=== PATIENT | male | born 2000 | race Two or more races ===

== ENCOUNTER 2024-12-13 09:50 | Inpatient (IN) | payer OTHER ==
[~2024-12-13] VITALS: Ht 167.6 cm; Wt 77.3 kg
--- NOTE | 2024-12-13 10:06 | Physician Documentation ---
History of Present Illness ~ Chief Complaint: Ankle pain Stated Complaint: "QUIGLEY SPLINTS" Time Seen by MD: 11:00 HPI This 24-year-old male presents to the ED with a complaint of leg cramps for the last 2-3 hours with increasing severity. 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 foot held stiffly in dorsiflexion, tenderness to anterior lower leg muscles. posterior lower leg soft non tender. Procedures Additional Procedures Procedure Note Compartment pressure left leg -cleaned and prep with iodine -injected with lidocaine 7ml inserted 20g spinal needle into anterior compartment pressure 70mmhg, delta pressure 10 lateral compartment 28 deep compartment 20 superficial 22 Progress Progress Note 2 pm recheck he is still hurting. 4pm patient still uncomfortable, tachycardic, i am concerned for compartment syndrome. Attempted x 1 using a CVP monitor which was inconsistent and not working. Will retry using arterial line catheter. We do not have ortho eyewear consultant currently 540 pm compartment pressures elevated, Anabel lujan for emergent ortho 620pm orthopedics is now available, called Dr. Casiano who will come see the patient. Results/Orders Results/Orders Orders - ZACHARY COLLINS MD Tib/Fib (12/13/24 10:00) Cbc/Diff (12/13/24 15:57) Ringers Solution, Lacted (Lactated Ringe (12/13/24 18:25) Completed Orders - ZACHARY COLLINS MD Tib/Fib (12/13/24 10:00) CK (12/13/24 10:00) Urinalysis (12/13/24 10:00) BMP (12/13/24 10:00) Hydrocodone/Apap 10/325 ([place] 10/325mg (12/13/24 10:02) Cbc/Diff (12/13/24 11:21) Ringers Solution, Lacted (Lactated Ringe (12/13/24 11:50) Ketorolac Trometh 15mg/Ml Vial (Toradol (12/13/24 11:50) Morphine 4mg/Ml Inj. (Morphine Inj.) (12/13/24 11:50) Magnesium Sulf-Water 2g/50ml (Magnesium (12/13/24 13:15) Tizanidine Tablet (Zanaflex Tablet) (12/13/24 13:15) Lorazepam Inj (Ativan Inj) (12/13/24 13:15) Diazepam Tablet (Valium Tablet) (12/13/24 14:25) Lidocaine 1% W/Epi 1:100,000 (Xylocaine (12/13/24 15:25) CK (12/13/24 15:57) Medications Received in ER Medications (Trade) Dose Ordered Sig/Alysha Route PRN Reason Start Time Stop Time Status Last Admin Dose Admin Lactated Ringer's 1,000 ml @ 1,000 mls/hr ONCE ONCE IV 12/13/24 11:50 12/13/24 12:49 DC 12/13/24 11:58 1,000 MLS/HR (Toradol injection) 15 mg ONCE ONCE IV 12/13/24 11:50 12/13/24 11:53 DC 12/13/24 12:01 15 MG (morphine inj.) 4 mg ONCE ONCE IV 12/13/24 11:50 12/13/24 11:53 DC 12/13/24 12:02 4 MG Magnesium Sulfate 50 ml @ 25 mls/hr ONCE ONCE IV 12/13/24 13:15 12/13/24 15:14 DC 12/13/24 13:29 25 MLS/HR (Zanaflex tablet) 4 mg ONCE ONCE PO 12/13/24 13:15 12/13/24 13:16 DC 12/13/24 13:27 4 MG (Ativan inj) 0.5 mg ONCE ONCE IV 12/13/24 13:15 12/13/24 13:16 DC 12/13/24 13:27 0.5 MG (Valium tablet) 5 mg ONCE ONCE PO 12/13/24 14:25 12/13/24 14:29 DC 12/13/24 14:59 5 MG (Xylocaine 1%-EPI 1:100,000) 20 ml ONCE ONCE SQ 12/13/24 15:25 12/13/24 15:26 DC 12/13/24 15:36 20 ML (Dilaudid inj.) 1 mg ONCE ONCE IV 12/13/24 16:05 12/13/24 16:06 DC 12/13/24 16:36 1 MG Vital Signs 12/13/24 12/13/24 12/13/24 12/13/24 09:57 10:21 11:02 11:50 Temp 98.8 Pulse 149 Resp 24 20 22 18 B/P (MAP) 162/105 Pulse Ox 97 O2 Flow Rate 0 12/13/24 12/13/24 12/13/24 12/13/24 12:01 12:02 13:20 14:57 Temp 98.8 Pulse 115 112 Resp 21 21 12 14 B/P (MAP) 159/113 (128) 144/102 (116) Pulse Ox 97 98 O2 Flow Rate 0 0 12/13/24 12/13/24 12/13/24 12/13/24 15:51 15:58 16:41 16:50 Temp 98.8 98.8 98.8 98.8 Pulse 110 91 106 98 Resp 12 10 12 10 B/P (MAP) 125/73 (90) 119/67 (84) 129/86 (100) 124/77 (93) Pulse Ox 96 98 99 99 O2 Flow Rate 0 0 0 0 12/13/24 12/13/24 12/13/24 17:00 17:10 17:53 Temp 98.8 98.8 Pulse 107 108 Resp 11 16 18 B/P (MAP) 142/76 (98) 135/90 (105) Pulse Ox 99 99 O2 Flow Rate 0 0 Laboratory Tests Test 12/13/24 10:46 12/13/24 13:45 12/13/24 16:22 White Blood Count 16.9 H 10.5 Red Blood Count 5.65 5.18 Hemoglobin 16.3 15.2 Hematocrit 48.2 44.4 Mean Corpuscular Volume 85.4 85.7 Mean Corpuscular Hemoglobin 28.8 29.4 Mean Corpuscular Hemoglobin Concent 33.7 34.3 Red Cell Distribution Width 12.8 12.7 Platelet Count 270 247 Mean Platelet Volume 10.7 H 10.7 H Neutrophils (%) (Auto) 85.8 H 85.9 H Lymphocytes (%) (Auto) 8.5 L 8.9 L Monocytes (%) (Auto) 5.5 5.0 Eosinophils (%) (Auto) 0 0 Basophils (%) (Auto) 0.2 0.2 Neutrophils # (Auto) 14.5 H 9.0 H Lymphocytes # (Auto) 1.4 0.9 L Monocytes # (Auto) 0.9 0.5 Eosinophils # (Auto) 0.0 0.0 Basophils # (Auto) 0.0 0.0 CBC Comment Platelet Estimate Normal Large Platelets Few Red Blood Cell Morphology Normal Basophilic Stippling Sodium Level 137 Potassium Level 3.9 Chloride Level 99 Carbon Dioxide Level 22.4 L Anion Gap 16 Blood Urea Nitrogen 12 Creatinine 1.66 H Estimated GFR/1.73 m2 50 BUN/Creatinine Ratio 7.2 L Glucose Level 124 H Calcium Level 9.6 Total Creatine Kinase 440 H 4149 H Albumin 4.9 Chemistry Comments Urine Specimen Description Non-specified Urine Color Straw Urine Clarity Clear Urine pH 6.0 Urine Specific Alanson <=1.005 Urine Protein Negative Urine Glucose (UA) Negative Urine Ketones 40 H Urine Occult Blood Negative Urine Nitrite Negative Urine Bilirubin Negative Urine Urobilinogen 0.2 Urine Leukocyte Esterase Negative Volume Urine Centrifuged 10 ml Urine Comment Medical Decision Making Additional Comment compartment symdrome, heat cramps. Departure Disposition: 30 STILL A PATIENT Impression: Primary Impression: Compartment syndrome Qualified Codes: M79.A22 - Nontraumatic compartment syndrome of left lower extremity Additional Impression Text patient with leg pain after hiking. initially felt likely heat cramps, now concern for compartment syndrome. Signed out to night physician Dr. Schmitt pending ortho eval. Referrals: NO PRIMARY CARE PROVIDER (PCP) Signature Scribe Signature: na Attestation: TARA Gottlieb NP Dec 13, 2024 10:06 ZACHARY COLLINS MD Dec 13, 2024 13:17
[2024-12-13] MEDS: HYDROcodone/acetaminophen 10/325mg tab PO STA (10:21)
--- NOTE | 2024-12-13 10:37 | RADIOLOGY REPORT ---
CLINICAL INDICATION: BILATERAL TIB-FIB PAIN TECHNIQUE: DI TIB/FIB 2 VWS, DI TIB/FIB 2 VWS Comparison: None FINDINGS/IMPRESSION: : There is no evidence of acute fracture or dislocation. Soft tissues are unremarkable.
[2024-12-13 11:22] LABS: CREATININE 1.66 MG/DL (0.60-1.10); TOTAL CARBON DIOXIDE 22.4 MMOL/L (24-32); eCRCL 61 ML/MIN; eGFR 50 ML/MIN
[2024-12-13 11:35] LABS: MEAN PLATELET VOLUME 10.7 FL (7.4-10.4); RED CELL DISTRIBUTION WIDTH 12.8 % (11.5-14.5)
[2024-12-13 11:52] LABS: PLATELET ESTIMATE NORMAL
[2024-12-13 11:54] LABS: LARGE PLATELETS FEW
[2024-12-13] MEDS: ringers solution, lacted 1,000 ML IV ONE ×2 (11:58→18:39)
[2024-12-13] MEDS: ketorolac trometh 15mg/ml vial 15 MG/ML ML IV ONE (12:01)
[2024-12-13] MEDS: morphine 4 MG/ML inj SYRINge IV ONE (12:02)
[2024-12-13] MEDS: magnesium sulf-water 2g/50mL 50 ML IV ONE (13:29)
[2024-12-13 14:00] LABS: LEUKOCYTE ESTERASE ,URINE NEGATIVE (Neg); NITRITES, URINE NEGATIVE (Neg); OCCULT BLOOD,URINE NEGATIVE (Neg); UA COLLECTION TYPE NON-SPECIFIED
[2024-12-13] MEDS: LIDOcaine 1% W/epiNEPHrine 1:100,000 20ml vial SQ ONE (15:36)
[2024-12-13 17:10] LABS: MEAN PLATELET VOLUME 10.7 FL (7.4-10.4); RED CELL DISTRIBUTION WIDTH 12.7 % (11.5-14.5)
[2024-12-13] MEDS ORDERED: mag hydrox/Alum hydrox/simeth 30ml oral suspension PO PRN (21:15)
[2024-12-13] MEDS ORDERED: magnesium sulf-water 2g/50mL 50 ML IV PRN (21:15)
[2024-12-13] MEDS ORDERED: potassium Cl 40MEQ/1/2NS 520ml 520 ML IV PRN (21:15)
[2024-12-13] MEDS ORDERED: ondansetron/PF 4mg/2ml inj IV PRN (21:15)
[2024-12-13] MEDS ORDERED: magnesium sulf-water 4G/100mL 100 ML IV PRN (21:15)
[2024-12-13] MEDS ORDERED: magnesium Cl slow-release 64mg tablet PO PRN (21:15)
[2024-12-13] MEDS ORDERED: potassium Cl 20 mEq SR tablet PO PRN ×2 (21:15)
[2024-12-13] MEDS ORDERED: NO HOME MEDS (21:33)
--- NOTE | 2024-12-13 23:57 | HISTORY AND PHYSICAL-Residence ---
History & Physical Providers to CC Resident Creating Document: CHIOMA TATUM RES ~ History of Present Illness Reason for Admit\Complaint: COMPARTMENT SYNDROME History of Present Illness 24-year-old male with no significant past medical history presented to the ED with chief complaints of bilateral lower extremity cramps since earlier today. Morning at around 8:30 a.m. he was doing a 3 mi long jog with 45 lb vest on. Jail through he started having galicia splints. 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 He finished the jog, after which she was not able to walk or lift his legs. He had extreme 10/10 pain. In the ED he has compartment pressures were checked in the left lower extremity, anterior compartment pressure 70 mmHg Delta appreciate 10. Lateral compartment 28 and deep compartment [address] Casiano orthopedics was consulted who has evaluated the patient and recommended to admit for observation without administration of pain medications, and to monitor for worsening pain which would then require emergent fasciotomy. Currently he states the pain is 7/10. No other associated symptoms. Does not smoke, drinks alcohol occasionally. No recreational drug use. Discussed advanced care directives and he wishes to be a full code. Allergies: Coded Allergies: No Known Allergies (Unverified , 12/13/24) Home Medications Home Medications Active Reported No Home Medications (Home Med List) Each Past Medical History Past Medical History None Past Surgical History Surgical History Comment None ROS ROS Reviewed in full. All negative except for pertinent positive HPI. Exam Vitals: Vital Signs Date Time Temp Pulse Resp B/P (MAP) Pulse Ox O2 Delivery O2 Flow Rate FiO2 12/13/24 19:44 98.8 85 14 137/89 (105) 98 0 General: General: Awake and Alert, no acute distress. HEENT: Conjunctiva pink, Sclera clear, Mucus Membranes moist. Neck: Supple without masses and tenderness. Resp: Unlabored. Equal breath sounds bilaterally. Heart: Regular rhythm, normal S1 and S2, no rub, murmur or gallop. Abdomen: Soft and non tender no organomegaly. Normal bowel sounds x4 quadrant normoactive. No guarding or rigidity. Extremities: Tenderness in the left leg. No edema erythema cyanosis. Normal ROM. PROGRAM MGR: No gross motor or sensory abnormalities. Skin: Warm and Dry. Diagnostic Data Last Recorded Lab Results: 12/14/24 0415 12/14/24 0415 Advance Care Planning Advanced Care plannin - 30 Minutes Additional Plan 24-year-old male with no significant past medical history presented to the ED with chief complaints of bilateral lower extremity cramps since earlier today. Nontraumatic Compartment syndrome of the left leg Elevated creatinine kinase Compartment pressures were checked in the ED: Left leg: Anterior compartment pressor 70, Delta pressure 10, lateral compartment 28, deep compartment 20, superficial 22 Dr. Casiano consulted, recommended to avoid pain medications and observe overnight, if pain worsens he will require emergent fasciotomy Received 2 L fluid bolus in the ED, started half NS with one amp bicarb at 75 mL/hour Pain on admission was 10/10, currently he is complaining of 7/10 pain Avoid pain medications and monitor for worsening of symptoms BOUBACAR likely secondary to vasomotor nephropathy Continue fluid resuscitation Code Status: Full code Analgesia/sedation: none Line/tube: PIV GI prophylaxis: None Nutrition: Regular diet Prognosis: Guarded Disposition: Continue medical management. Chioma Tatum MD. Resident PGY-3 Date of Service: Dec 13, 2024 Billing Provider: GISSEL DÍAZ MD Common Visit Codes: [id number] INP/OBS CARE (HIGH) Assessment/Plan Assessment Evaluated the patient with the help of residents. Discussed the case with them Reviewed notes by Dr.Elizabeth PASCAUL Agree with her assessments and plans I also reviewed labs. Suggest continue fluids as now. Rhabdomyolysis+ - high risk for BOUBACAR CHIOMA TATUM, RES Dec 13, 2024 23:57 GISSEL DÍAZ MD Dec 14, 2024 10:42
[2024-12-14] VITALS (28 sets, daily range): BP systolic 120–162; BP diastolic 76–108; PULSE 73–110; RESP 10–23; TEMP 97.9–98.7; O2SAT 94–100
[2024-12-14] MEDS: sodium bicarbonate (8.4%) inj. 50 MEQ in sodium chloride 0.45% 1,000 ML IV SCH (03:54)
[2024-12-14] MEDS: sodium bicarbonate (8.4%) inj. 1 MEQ/ML ML ONE (03:57)
[2024-12-14 04:29] LABS: MEAN PLATELET VOLUME 10.1 FL (7.4-10.4); RED CELL DISTRIBUTION WIDTH 13.1 % (11.5-14.5)
[2024-12-14 04:54] LABS: CREATININE 1.07 MG/DL (0.60-1.10); PHOSPHORUS 2.8 MG/DL (2.3-4.5); TOTAL CARBON DIOXIDE 27.2 MMOL/L (24-32); eCRCL 94 ML/MIN; eGFR 84 ML/MIN
[2024-12-14] MEDS ORDERED: BUPIVAcaine 2.5mg/ml inj 50ml vial (contains preservative) ONE (07:16)
[2024-12-14] MEDS ORDERED: bacitracin 15gm ointment TP ONE (07:16)
[2024-12-14] MEDS: K and/or MAG REPLACEMENT MC SCH (08:00)
[2024-12-14] MEDS ORDERED: midazolam 1 mg/ML 2ml injection ONE (08:01)
[2024-12-14] MEDS ORDERED: fentaNYL /PF 50mcg/ml 5ml ampule ONE (08:01)
[2024-12-14 08:16] LABS: LACTATE DEHYDROGENASE 565 U/L (85-227)
[2024-12-14] MEDS ORDERED: propofol inj 20 ML IV ONE (08:23)
[2024-12-14] MEDS ORDERED: LIDOcaine 2% (20mg/ml) 5ml vial ONE (08:23)
[2024-12-14] MEDS ORDERED: ondansetron/PF 4mg/2ml inj ONE (08:23)
[2024-12-14] MEDS ORDERED: dexamethasone sod phosphate 4mg/ml inj. ONE (08:23)
[2024-12-14] MEDS ORDERED: rocuronium 10mg/ml inj IV ONE (08:23)
[2024-12-14] MEDS ORDERED: ondansetron/PF 4mg/2ml inj IV PRN (09:10)
[2024-12-14] MEDS: ringers solution, lacted 1,000 ML IV SCH (09:10)
[2024-12-14] MEDS ORDERED: labetalol 20mg/4ml (5mg/ml) syringe IV PRN (09:10)
[2024-12-14] MEDS ORDERED: meperidine/PF 25mg/ml syringe IV PRN (09:10)
[2024-12-14] MEDS ORDERED: hydrALAZINE 20mg/ml inj. IV PRN ×2 (09:10→12:20)
[2024-12-14] MEDS: morphine 4 MG/ML inj SYRINge IV PRN (09:14)
[2024-12-14] MEDS: HYDROmorphone/PF 0.2 MG/ML SYRINGE IV PRN ×4 (09:24→19:20)
--- NOTE | 2024-12-14 09:24 | CONSULTATION REPORT ---
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 This test requires him to carry 45 lb in a VAC pack and walk for 3 miles within a 45 minute. After completing his tasks this patient developed bilateral leg pain presented to the emergency room on 12/13/2024 around nine AM. Workup was begun in medications requiring narcotic pain pills to control his pain and discomfort. This is I was called re-evaluate this patient around 6:00 p.m. for possible compartment syndrome after the nurse-practitioner felt that the compartment pressures have been elevated primarily allergy left leg. Patient was found to have elevated creatinine kinase levels that went from 400 to 4000 during his emergency room visit. Drain via valley evaluation of the patient the patient was having minimal pain and only slight hypesthesia to the right foot. He was requesting to do that and go to the bathroom. Examination on examination shows lower extremity his anterior compartment was full but not taut. He had good distal pulses and good capillary refill without slowing. There was no blanching of the patient had full passive and active dorsiflexion and plantar flexion of his feet. Patient's pain level as less than three. His last pain medication was 3 hours prior to my visit. I requested to repeat the pressure catheter testing lower extremities at this time the patient refused to have further testing because of the pain the previous testing inflicted. Based on his presentation I opted for further observation with immobilization in bed rest and no further pain med management medication to monitor his progress and repeat creatinine kinase levels also of the ordered reports attempt symptomatic. He was admitted and assuming the hospital floor for close observation. I will monitor this patient over the evening via telephone and encouraged the nurses to call if there was any change on this exam Thank you for the consultation Allergies: Coded Allergies: No Known Allergies (Unverified , 12/13/24) Home Medications Home Medications Active Reported No Home Medications (Home Med List) Each Physical Exam Last Vital Signs Recorded: Temperature: 98.6, Source: Temporal, Heart Rate: 76, Respiratory Rate: 11, BP: 131/90, Pulse Oximetry: 100, Weight: 77.270 Results Diagram Lab Result Diagram: 12/14/24 0415 12/14/24 0415 OVIDIO CONCEPCION MD Dec 14, 2024 09:24
--- NOTE | 2024-12-14 09:33 | OPERATIVE REPORT ---
Operative Report Providers to ~ Date of Procedure: Dec 14, 2024 Pre-Operative Diagnosis: COMPARTMENT SYNDROME Post-Operative Diagnosis SAME as PRE-Op Procedure Performed Anterior and lateral compartment fasciotomy bilateral lower extremities Surgeon: mAmon Concepcion MD Drill Runner Helper None Anesthesiologist: Tobi Irizarry Type of Anesthesia: General Findings: Patient was found to have elevated compartment pressures and slight discoloration of the anterior compartment muscles into the left leg. Right leg showed less swelling and normal coloration. Lateral compartment muscles were within normal limits. All muscles had good response to electrocautery with con traction. Posterior compartment was not compromised. Complications None Prosthetics\Implants used: None Estimated Blood Loss: Less than 100 cc Specimen Removed: None Description of Procedure: The patient was taken the operating room after the symptoms began to progress this morning with some hypesthesia of the both feet and increasing pain especially to the left anterior compartment his right anterior compartment was painful to palpation. Increased pain with passive range of motion to both lower extremities. The symptoms began within the past hour or approximately 7:00 a.m.. [place] [address]. Based on these clinical parameter changes compartment syndrome was found to be progressive and a urgent emergent compartment release was indicated and patient complied with recommendations for bilateral anterior and lateral compartment decompression. Informed consents were obtained assigned both extremities. Was taken for emergent basis to the operating room where his legs were prepped and draped in usual sterile orthopaedic fashion after general anesthetic was completed patient was in supine position. Surgical time-out was taken per protocol and the case was begun. The right leg was addressed 1st. A lateral incision was made starting at the junctional 3rd of the proximal tibia this incision was extended depending on intraoperative findings for final incision length of the proximally 6 in fascia was released 1st of the anterior compartment some tension was appreciated in the muscle but with no discoloration and normal response to electrocautery lateral compartment release was accomplished by extending the subcutaneous tissue visualizing the peroneal nerve which is underneath the fascia this point releasing the fascia posterior to the peroneal there both proximally and distally lateral component of normal ligament is anatomy and muscle without distal significant swelling. The same approach was used for the left leg fasciotomy was released to the anterior compartment 1st and significant bulging was encountered. Muscle this compartment was deeper reddish color but still had contraction with the Bovie. After complete decompression of the anterior compartment lateral compartment was released in the similar fashion protecting the peroneal nerve and was found to be normal on this left leg as well. Aricept solution was used to irrigate both incisions fasciotomies were left open for delayed later closure or skin grafting Xeroform dressings were placed over the fasciotomy sites as well as DAPT so Ancef impregnated normal saline was used. ABD pad was placed over the top of this and then held in position with loosely applied Kerlix roll. Patient was then extubated and taken to recovery room in stable condition there were no apparent perioperative complications needle and sponge to be correct Counts repoted as correct: Yes AMMON CONCEPCION MD Dec 14, 2024 09:33
[2024-12-14 09:57] LABS: MYOGLOBIN 3885 ng/ml (16-96)
[2024-12-14] MEDS: acetaminophen 1,000mg/100ml IV 100 ML IV PRN (10:11)
--- NOTE | 2024-12-14 11:52 | PROGRESS NOTE ---
Daily Progress Note Providers to CC ~ Antibiotic Timeout Antibiotic Ordered?: No Subjective No acute events overnight. Patient examined at bedside. Patient denies chest pain, sob, palpitations, abdominal pain, n/v/d. Vss, labs notable for uptrending CK, elevated myoglobin, elevated LDH. Continued on fluid resuscitation. Cr downtrending. OR today for anterior and lateral compartment fasciotomy bilateral lower extremities. 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 Assessment & Plan Nontraumatic Compartment syndrome of b/l LE Rhabdomyolysis- POA Intrarenal BOUBACAR 2/2 ATN 2/2 myoglobinemia 2/2 rhabdomyolysis- POA -12/14: OR today for anterior and lateral compartment fasciotomy bilateral lower extremities -uptrending CK, elevated myoglobin, elevated LDH, continued on fluid resuscitation, Cr downtrending on IVF HTN -amlodipine, prn hydralazine Code Status: Full code DVT/VTE Prophylaxis: heparin Date of Service: Dec 14, 2024 Billing Provider: CHINO SANCHES Common Visit Codes: [id number] INP/OBS CARE(HIGH) CHINO SANCHES Dec 14, 2024 11:52
[2024-12-14] MEDS: normal saline 1000ml 1,000 ML IV SCH (12:15)
[2024-12-14] MEDS: HYDROcodone/acetaminophen 10/325mg tab PO PRN (12:29)
[2024-12-14] MEDS: heparin, porcine 5000 units/ml vial SQ SCH (22:07)
[2024-12-15 05:25] LABS: MEAN PLATELET VOLUME 10.9 FL (7.4-10.4); RED CELL DISTRIBUTION WIDTH 13.1 % (11.5-14.5)
[2024-12-15 06:05] LABS: TOTAL CARBON DIOXIDE 28.5 MMOL/L (24-32)
[2024-12-15 07:00] VITALS: BP 134/95; PULSE 68; RESP 16; TEMP 98.2; O2SAT 97
[2024-12-15 07:06] LABS: CREATININE 0.98 MG/DL (0.60-1.10); PHOSPHORUS 3.2 MG/DL (2.3-4.5); eCRCL 103 ML/MIN; eGFR > 90 ML/MIN
[2024-12-15 10:00] VITALS: BP 143/94; PULSE 100; RESP 16; TEMP 98.1; O2SAT 99
--- NOTE | 2024-12-15 11:08 | PROGRESS NOTE ---
Daily Progress Note Providers to CC ~ Antibiotic Timeout Antibiotic Ordered?: No Subjective No acute events overnight. Patient examined at bedside. Patient denies chest pain, sob, palpitations, abdominal pain, n/v/d. Vss, labs notable for uptrending CK, elevated myoglobin, elevated LDH. Continued on fluid resuscitation. Cr downtrending. s/p anterior and lateral compartment fasciotomy of bilateral lower extremities on 12/14/24. Bedrest now per recommendation. Objective Vital Signs Date Time Temp Pulse Resp B/P (MAP) Pulse Ox O2 Delivery O2 Flow Rate FiO2 12/15/24 09:08 68 12/15/24 04:21 16 12/14/24 22:00 98.1 140/100 (113) 98 Room Air 12/14/24 20:00 6.0 Result Diagram: 12/15/2441112/15/24411 Physical Exam General: Generalized weakness, A&Ox 3, NAD HEENT: Normocephalic, PERRLA Neck: Supple, trachea midline, no JVD Chest: Clear to auscultation bilaterally Cardiovascular: RRR, S1&S2 GI: Soft and nontender Extremities: post-op incisions b/l LE ATTENDING UROLOGIST: CN II-XII intact, no focal deficits Musculoskeletal: No paraspinal muscle tenderness, no muscle spasm Skin: b/l lower extremities decompressed, dressed Problem\Assessment\Plan 24-year-old male with no significant past medical history presented to the ED with chief complaints of bilateral lower extremity cramps since earlier today. Assessment & Plan Nontraumatic Compartment syndrome of b/l LE Rhabdomyolysis- POA Intrarenal BOUBACAR 2/2 ATN 2/2 myoglobinemia 2/2 rhabdomyolysis- POA -12/14: OR today for anterior and lateral compartment fasciotomy bilateral lower extremities -uptrending CK, elevated myoglobin, elevated LDH, continued on fluid resuscitation, Cr downtrending on IVF HTN -amlodipine, prn hydralazine Code Status: Full code DVT/VTE Prophylaxis: heparin Date of Service: Dec 15, 2024 Billing Provider: CHINO SANCHES Common Visit Codes: [id number] INP/OBS CARE(HIGH) CHINO ASNCHES Dec 15, 2024 11:08
[2024-12-15 18:00] VITALS: BP 143/90; PULSE 91; RESP 15; TEMP 98.2; O2SAT 98
[2024-12-15 20:00] VITALS: RESP 15; O2SAT 98
[2024-12-15 22:00] VITALS: BP 121/80; PULSE 103; RESP 16; TEMP 98.3; O2SAT 96
[2024-12-16] VITALS (7 sets, daily range): BP systolic 110–135; BP diastolic 60–85; PULSE 106–116; RESP 14–17; TEMP 98–99; O2SAT 94–99
[2024-12-16 04:46] LABS: MEAN PLATELET VOLUME 10.2 FL (7.4-10.4); RED CELL DISTRIBUTION WIDTH 12.8 % (11.5-14.5)
[2024-12-16 05:13] LABS: CREATININE 1.01 MG/DL (0.60-1.10); PHOSPHORUS 3.3 MG/DL (2.3-4.5); TOTAL CARBON DIOXIDE 26.6 MMOL/L (24-32); eCRCL 100 ML/MIN; eGFR 89 ML/MIN
--- NOTE | 2024-12-16 11:29 | PROGRESS NOTE ---
Daily Progress Note Providers to CC ~ Antibiotic Timeout Antibiotic Ordered?: No Subjective No acute events overnight. Patient examined at bedside. Patient denies chest pain, sob, palpitations, abdominal pain, n/v/d. s/p anterior and lateral compartment fasciotomy of bilateral lower extremities on 12/14/24. Bedrest now per surgeon recommendation. Vss, labs notable for downtrending CK. Continued on fluids. 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 Assessment & Plan Nontraumatic Compartment syndrome of b/l LE Rhabdomyolysis- POA Intrarenal BOUBACAR 2/2 ATN 2/2 myoglobinemia 2/2 rhabdomyolysis- POA -12/14: OR today for anterior and lateral compartment fasciotomy bilateral lower extremities -uptrending CK, elevated myoglobin, elevated LDH, continued on fluid resuscitation, Cr downtrending on IVF -12/16: bedrest for now per surgeon recommendation HTN -amlodipine, prn hydralazine Code Status: Full code DVT/VTE Prophylaxis: heparin Date of Service: Dec 16, 2024 Billing Provider: CHINO SANCHES Common Visit Codes: [id number] INP/OBS CARE(HIGH) CHINO SANCHESP Dec 16, 2024 11:29
[2024-12-16 11:32] LABS: URINE AMPHETAMINE SCREEN NEGATIVE (Neg); URINE BARBITUATE SCREEN NEGATIVE (Neg); URINE BENZODIAZEPINES SCREEN NEGATIVE (Neg); URINE CANNABINOID SCREEN NEGATIVE (Neg); URINE COCAINE SCREEN NEGATIVE (Neg); URINE METHADONE SCREEN NEGATIVE (Neg); URINE OPIATE SCREEN POSITIVE (Neg); URINE PHENCYCLIDINE SCREEN NEGATIVE (Neg)
[2024-12-17 04:44] LABS: MEAN PLATELET VOLUME 10.5 FL (7.4-10.4); RED CELL DISTRIBUTION WIDTH 12.6 % (11.5-14.5)
[2024-12-17 05:13] LABS: CREATININE 0.93 MG/DL (0.60-1.10); PHOSPHORUS 3.6 MG/DL (2.3-4.5); TOTAL CARBON DIOXIDE 28.3 MMOL/L (24-32); eCRCL 109 ML/MIN; eGFR > 90 ML/MIN
[2024-12-17 06:00] VITALS: BP 115/70; PULSE 100; RESP 16; TEMP 98.7; O2SAT 98
[2024-12-17 10:00] VITALS: BP 122/79; PULSE 102; RESP 16; TEMP 97.3; O2SAT 96
--- NOTE | 2024-12-17 13:13 | PROGRESS NOTE ---
Daily Progress Note Providers to CC ~ Antibiotic Timeout Antibiotic Ordered?: No Subjective No acute events overnight. Patient examined at bedside. Patient denies chest pain, sob, palpitations, abdominal pain, n/v/d. s/p anterior and lateral compartment fasciotomy of bilateral lower extremities on 12/14/24. Bedrest w/ PT bed exercises only for now per surgeon recommendation. Vss, labs notable for downtrending CK otherwise unremarkable. Continued on fluids. 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 Assessment & Plan Nontraumatic Compartment syndrome of b/l LE Rhabdomyolysis- POA Intrarenal BOUBACAR 2/2 ATN 2/2 myoglobinemia 2/2 rhabdomyolysis- POA -12/14: OR today for anterior and lateral compartment fasciotomy bilateral lower extremities -uptrending CK, elevated myoglobin, elevated LDH, continued on fluid resuscitation, Cr downtrending on IVF -12/16&12/17: bedrest for now per surgeon recommendation HTN -amlodipine, prn hydralazine Code Status: Full code DVT/VTE Prophylaxis: heparin Date of Service: Dec 17, 2024 Billing Provider: CHINO SANCHESP Common Visit Codes: [id number] INP/OBS CARE(HIGH) CHINO SANCHESP Dec 17, 2024 13:13
[2024-12-17 18:00] VITALS: BP 130/79; PULSE 106; RESP 16; TEMP 98.2; O2SAT 97
[2024-12-17 22:00] VITALS: BP 131/87; PULSE 100; RESP 16; TEMP 99.4; O2SAT 97
[2024-12-18 05:48] LABS: MEAN PLATELET VOLUME 9.8 FL (7.4-10.4); RED CELL DISTRIBUTION WIDTH 13.1 % (11.5-14.5)
[2024-12-18 06:09] LABS: CREATININE 0.89 MG/DL (0.60-1.10); PHOSPHORUS 3.4 MG/DL (2.3-4.5); TOTAL CARBON DIOXIDE 26.8 MMOL/L (24-32); eCRCL 114 ML/MIN; eGFR > 90 ML/MIN
[2024-12-18 06:47] VITALS: BP 126/78; PULSE 102; RESP 16; TEMP 98.5; O2SAT 96
[2024-12-18] MEDS ORDERED: magnesium hydroxide 30ml (MOM) UD suspension PO PRN (08:05)
[2024-12-18] MEDS ORDERED: mag hydrox/Alum hydrox/simeth 30ml oral suspension PO PRN (08:05)
[2024-12-18] MEDS ORDERED: ondansetron 4mg rapidly disintigrating tab PO PRN (08:05)
[2024-12-18] MEDS ORDERED: ondansetron/PF 4mg/2ml inj IV PRN (08:05)
[2024-12-18] MEDS ORDERED: magnesium sulf-water 4G/100mL 100 ML IV PRN (08:05)
[2024-12-18] MEDS ORDERED: magnesium sulf-water 2g/50mL 50 ML IV PRN (08:05)
[2024-12-18] MEDS ORDERED: potassium Cl 40MEQ/1/2NS 520ml 520 ML IV PRN (08:05)
[2024-12-18] MEDS ORDERED: potassium Cl 20 mEq SR tablet PO PRN ×2 (08:05)
[2024-12-18 08:12] VITALS: RESP 16
[2024-12-18 10:00] VITALS: BP 127/80; PULSE 103; RESP 14; TEMP 97.6; O2SAT 97
[2024-12-18] MEDS: HYDROcodone/acetaminophen 10/325mg tab PO PRN (12:05)
--- NOTE | 2024-12-18 14:16 | PROGRESS NOTE ---
Daily Progress Note Providers to CC ~ Ruiz-Non Protocol Ruiz Indications Met/Not Met: F/C Indications Not Met Antibiotic Timeout Antibiotic Ordered?: Yes Subjective No acute events overnight. Patient examined at bedside. Patient denies chest pain, sob, palpitations, abdominal pain, n/v/d. s/p anterior and lateral compartment fasciotomy of bilateral lower extremities on 12/14/24. Bedrest w/ PT bed exercises only for now per surgeon recommendation. Vss, labs notable for downtrending CK otherwise unremarkable. Continued on fluids. 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 Assessment & Plan Nontraumatic Compartment syndrome of b/l LE Rhabdomyolysis- POA Intrarenal BOUBACAR 2/2 ATN 2/2 myoglobinemia 2/2 rhabdomyolysis- POA -12/14: OR today for anterior and lateral compartment fasciotomy bilateral lower extremities -uptrending CK, elevated myoglobin, elevated LDH, continued on fluid resuscitation, Cr downtrending on IVF -12/16-12/18: bedrest for now per surgeon recommendation, continue wound care HTN -amlodipine, prn hydralazine Code Status: Full code DVT/VTE Prophylaxis: heparin Date of Service: Dec 18, 2024 Billing Provider: CHINO SANCHES Common Visit Codes: [id number] INP/OBS CARE(MOD) CHINO SANCHES Dec 18, 2024 14:16
[2024-12-18] MEDS: ceFAZolin/D5W- 1GM premix 50 ML IV SCH (15:59)
[2024-12-18 18:00] VITALS: BP 130/80; PULSE 99; RESP 14; TEMP 97.6; O2SAT 97
[2024-12-18] MEDS: JUVEN Shake w/Arg/Glut/Ca2+Bmb (Juven 19.3gm) pkt 240ml PO SCH (18:00)
[2024-12-18] MEDS: K and/or MAG REPLACEMENT MC SCH (20:00)
[2024-12-18] MEDS: metoprolol tartrate 12.5mg (1/2 tablet) PO SCH (20:27)
[2024-12-19 06:05] LABS: MEAN PLATELET VOLUME 9.9 FL (7.4-10.4); RED CELL DISTRIBUTION WIDTH 12.5 % (11.5-14.5)
[2024-12-19 07:01] LABS: CREATININE 0.74 MG/DL (0.60-1.10); TOTAL CARBON DIOXIDE 29.0 MMOL/L (24-32); eCRCL 137 ML/MIN; eGFR > 90 ML/MIN
[2024-12-19 07:21] VITALS: BP 124/84; PULSE 89; RESP 16; TEMP 98.5; O2SAT 99
[2024-12-19 10:10] VITALS: RESP 16
--- NOTE | 2024-12-19 10:52 | PROGRESS NOTE ---
Daily Progress Note Providers to CC ~ Antibiotic Timeout Antibiotic Ordered?: Yes Subjective No acute events overnight. Patient examined at bedside. Patient denies chest pain, sob, palpitations, abdominal pain, n/v/d. s/p anterior and lateral compartment fasciotomy of bilateral lower extremities on 12/14/24. Bedrest w/ PT bed exercises only for now per surgeon recommendation. Vss, labs unremarkable. 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 Assessment & Plan Nontraumatic Compartment syndrome of b/l LE Rhabdomyolysis- POA Intrarenal BOUBACAR 2/2 ATN 2/2 myoglobinemia 2/2 rhabdomyolysis- POA -12/14: OR today for anterior and lateral compartment fasciotomy bilateral lower extremities -uptrending CK, elevated myoglobin, elevated LDH, continued on fluid resuscitation, Cr downtrending on IVF -12/16-12/19: bedrest for now per surgeon recommendation, continue wound care HTN -amlodipine, prn hydralazine Code Status: Full code DVT/VTE Prophylaxis: heparin Date of Service: Dec 19, 2024 Billing Provider: CHINO SANCHES Common Visit Codes: [id number] INP/OBS CARE(MOD) CHINO SANCHES Dec 19, 2024 10:52
[2024-12-19 11:00] VITALS: BP 131/89; PULSE 87; RESP 17; TEMP 98.7; O2SAT 99
[2024-12-19 18:00] VITALS: BP 130/80; PULSE 76; RESP 18; TEMP 98.4; O2SAT 99
[2024-12-19 20:00] VITALS: RESP 18; O2SAT 98
[2024-12-19 22:00] VITALS: BP 124/77; PULSE 77; RESP 14; TEMP 98.2; O2SAT 97
[2024-12-20] VITALS (7 sets, daily range): BP systolic 113–128; BP diastolic 70–77; PULSE 79–113; RESP 13–18; TEMP 98–98.3; O2SAT 96–98
[2024-12-20 05:11] LABS: MEAN PLATELET VOLUME 9.7 FL (7.4-10.4); RED CELL DISTRIBUTION WIDTH 12.6 % (11.5-14.5)
[2024-12-20 05:36] LABS: CREATININE 1.10 MG/DL (0.60-1.10); TOTAL CARBON DIOXIDE 28.3 MMOL/L (24-32); eCRCL 92 ML/MIN; eGFR 81 ML/MIN
--- NOTE | 2024-12-20 11:11 | PROGRESS NOTE ---
Daily Progress Note Providers to CC ~ Antibiotic Timeout Antibiotic Ordered?: Yes If Yes, Indications: Prophylaxis Subjective No acute events overnight. Patient examined at bedside. Patient denies chest pain, sob, palpitations, abdominal pain, n/v/d. s/p anterior and lateral compartment fasciotomy of bilateral lower extremities on 12/14/24. Vss, Cr uptrended, CK further downtrending, continued on IVF. Pending OR schedule for primary closure and skin graft. 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 Assessment & Plan Nontraumatic Compartment syndrome of b/l LE Rhabdomyolysis- POA Intrarenal BOUBACAR 2/2 ATN 2/2 myoglobinemia 2/2 rhabdomyolysis- POA -12/14: OR today for anterior and lateral compartment fasciotomy bilateral lower extremities -uptrending CK, elevated myoglobin, elevated LDH, continued on fluid resuscitation, Cr downtrending on IVF -12/16-12/19: bedrest for now per surgeon recommendation, continue wound care, on prophylactic cefazolin -12/20: Pending OR schedule for primary closure and skin graft. HTN -amlodipine, prn hydralazine Code Status: Full code DVT/VTE Prophylaxis: heparin Date of Service: Dec 20, 2024 Billing Provider: CHINO SANCHES ROUTE SUPERVISOR Common Visit Codes: [id number] INP/OBS CARE(HIGH) CHINO SANCHES ROUTE SUPERVISOR Dec 20, 2024 11:11
[2024-12-21] VITALS (19 sets, daily range): BP systolic 114–153; BP diastolic 69–94; PULSE 81–114; RESP 12–18; TEMP 98.1–99.1; O2SAT 94–99
[2024-12-21 04:59] LABS: MEAN PLATELET VOLUME 9.3 FL (7.4-10.4); RED CELL DISTRIBUTION WIDTH 12.6 % (11.5-14.5)
[2024-12-21 05:21] LABS: CREATININE 0.99 MG/DL (0.60-1.10); TOTAL CARBON DIOXIDE 29.5 MMOL/L (24-32); eCRCL 102 ML/MIN; eGFR > 90 ML/MIN
[2024-12-21] MEDS: HYDROcodone/acetaminophen 5mg/325mg tablet PO PRN (08:43)
--- NOTE | 2024-12-21 09:54 | PROGRESS NOTE ---
Daily Progress Note Providers to CC Chief complaint, pain bilateral lower extremity ~ Central Line/PICC still needed: No Ruiz-Non Protocol Ruiz Indications Met/Not Met: F/C Indications Not Met Antibiotic Timeout Antibiotic Ordered?: Yes MRSA Education MRSA Education Provided to pt: Yes Subjective As above Objective Vital Signs Date Time Temp Pulse Resp B/P (MAP) Pulse Ox O2 Delivery O2 Flow Rate FiO2 12/21/24 08:43 18 12/21/24 08:42 81 12/21/24 08:00 Room Air 12/21/24 06:00 99.1 126/75 (92) 99 12/21/24 03:27 96 Vital signs, stable ,afebrile. Pulse Oximetry reflects adequate oxygenation. General: well developed, well nourished. Awake , alert, and oriented x4, resting comfortably in the bed, in no acute distress . Skin: Warm, dry, no pallor, no rash or petechiae. Locally, dressing clean dry intact HEENT: Atraumatic, normocephalic, EOMI, anicteric sclera B; pink conjunctiva; PERRLA, normal oropharynx, moist oral and nasal mucosa. Tympanic membrane , nose , throat clear. Neck: Trachea midline. Supple, full range of motion, no JVD, bruit , hepatojugular reflex , lymphadenopathy or masses, or other lesions Cardiac: Regular rhythm, regular rate no murmurs, rubs, or gallops. Normal S1 and S2, no S3 noticed. PMI is normal. Respiratory: Equal breath sounds bilaterally, no tachypnea; lungs clear to auscultation bilaterally, no wheezing ,rub or rales, or crackles. Chest wall is symmetric and without deformity. No signs of trauma. Chest wall is nontender. No signs of respiratory distress. Resonance is normal upon percussion bilaterally. Gastrointestinal: Abdomen symmetric, non-distended, soft, non-tender, normal bowel sounds x4 quadrant, normoactive, no hepatosplenomegaly , no masses , no bruit, no flank pain bilaterally. No voluntary guarding, rebound, or rigidity. No tenderness to percussion. No pulsatile masses. Equal femoral pulses. No Khan's sign or McBurney point tenderness. Back; no CVA tenderness bilaterally, no deformities. Neck and back are without deformity as well. No tenderness noted on palpation of the spinous processes. Spinous processes are midline. Cervical, thoracic, and lumbar paraspinal muscles are not tender and are without spasm. : normal external genitalia, without lesions, swelling, masses or tenderness. Musculoskeletal: Extremities, normal range of motion, non-tender, muscle strength 5/5 x 4. Negative Homans signs bilaterally on lower extremity. Distal pulses full symmetrical, no clubbing, cyanosis , edema. Neurological: Speech is clear, alert, and oriented x 4. No motor or sensory deficit, deep tendon reflexes normal, cerebellar intact. Cranial nerves II-XII intact. Psych: Alert and or appropriate, normal affect. Vascular: Good distal pulses, which are equal x4; capillary refill less than 2 seconds. Lymphatic, no lymphadenopathy. Result Diagram: 12/21/2442912/21/24429 Problem\Assessment\Plan 24-year-old male with no significant past medical history presented to the ED with chief complaints of bilateral lower extremity cramps since earlier today. Assessment & Plan Nontraumatic Compartment syndrome of b/l LE, awaiting to go to OR today Rhabdomyolysis- POA Intrarenal BOUBACAR 2/2 ATN 2/2 myoglobinemia 2/2 rhabdomyolysis- POA -12/14: OR today for anterior and lateral compartment fasciotomy bilateral lower extremities -uptrending CK, elevated myoglobin, elevated LDH, continued on fluid resuscitation, Cr downtrending on IVF -12/16-12/19: bedrest for now per surgeon recommendation, continue wound care, on prophylactic cefazolin -12/20: Pending OR schedule for primary closure and skin graft. HTN -amlodipine, prn hydralazine Code Status: Full code DVT/VTE Prophylaxis: heparin Sepsis Screening Reassessment Date: Dec 21, 2024 Date of Service: Dec 21, 2024 Billing Provider: KAIT MURRAY MD Common Visit Codes: [id number] INP/OBS CARE(HIGH) KAIT MURRAY MD Dec 21, 2024 09:54
[2024-12-21] MEDS ORDERED: bacitracin 15gm ointment TP ONE (15:17)
[2024-12-21] MEDS ORDERED: mineral oil 10ml sterile, topical TP ONE (15:26)
[2024-12-21] MEDS ORDERED: ondansetron/PF 4mg/2ml inj IV PRN (17:25)
[2024-12-21] MEDS ORDERED: magnesium hydroxide 30ml (MOM) UD suspension PO PRN (17:25)
[2024-12-21] MEDS ORDERED: bisacodyl 10mg suppository rectal RC PRN (17:25)
--- NOTE | 2024-12-21 17:36 | OPERATIVE REPORT ---
Operative Report Providers to ~ Date of Procedure: Dec 21, 2024 Pre-Operative Diagnosis: COMPARTMENT SYNDROME Post-Operative Diagnosis SAME as PRE-Op Procedure Performed Inspection debridement irrigation delayed primary closure bilateral fasciotomies lower extremities bilateral legs Surgeon: Ammon Concepcion MD Negative Assembler None Anesthesiologist: Marcos Bashir Type of Anesthesia: General Findings: Patient is found to have healthy bilateral anterior and lateral compartments without any muscle necrosis. Swelling was only moderate in delayed primary closure was attempted and completed Complications None Prosthetics\Implants used: None Estimated Blood Loss: 100 mL Specimen Removed: None mild amount of blood clot left lower extremity irrigated and washed out Description of Procedure: Patient was taken to the operating room approximately six days seven days postop urgent emergent fasciotomy in his bilateral lower extremities for the anterior lateral compartments patient's pain resolved in the past 48 hours with resolving creatinine kinase levels. Patient has remained afebrile. This patient was informed of the option of attempted primary closure versus skin grafting depending on intraoperative findings. May require debridement if there was any necrotic muscles upon inspection during the surgery procedure. I obtained informed consent. I discussed with him the indications risks benefits potential complications and limitations of the procedure. He was taken to the operating room where this given a general anesthetic and placed in the supine position the OR table. Bilateral legs were now prepped with Betadine prep from the groin to the and including the feet. Bilateral lower extremity drapes were used tourniquets were not used. Right leg was addressed 1st. The patient had a fasciotomy of the anterior lateral aspect of the right leg anterior compartment. The muscle was healthy and contracted with electrocautery pink. There was no necrotic tissue was encountered. The skin was now mobilize and I was able to approximated completely with interrupted mattress vertical mattress sutures using 2-0 nylon. Skin edges remained viable and without blanching. Incision level incision was approximately 6-7 inches in length. This was irrigated with antiseptic solution prior to closure. Adaptic and Xeroform dressing 4x4s loose Kerlix was applied. Left lower extremity was now addressed. This was the more swollen of the two extremities. However the muscle was pink and contracted with electrocautery. There was no necrotic material but there was some hematoma requiring evacuation. No active bleeding was encountered the lateral compartment was also viable as well as the superficial posterior compartment. Closure was attempted carefully starting from the proximal and distal aspects meeting in the middle I was able to mobilize the skin without difficulty achieve primary closure without the need for skin gap. Skin edges remained viable without blanching. Good distal pulses were maintained throughout both lower extremities during this procedure. Dressings were applied as on the right lower extremity with Xeroform and Adaptic 4x4s and Kerlix. Patient was now extubated and taken to the recovery room in stable condition there were no apparent perioperative complications needle and sponge count was reported to be correct Counts repoted as correct: Yes AMMON CONCEPCION MD Dec 21, 2024 17:36
[2024-12-22 02:00] VITALS: BP 105/59; PULSE 92; RESP 16; TEMP 98.1; O2SAT 99
[2024-12-22 04:37] LABS: MEAN PLATELET VOLUME 8.8 FL (7.4-10.4); RED CELL DISTRIBUTION WIDTH 12.6 % (11.5-14.5)
[2024-12-22 05:02] LABS: CREATININE 0.80 MG/DL (0.60-1.10); TOTAL CARBON DIOXIDE 26.3 MMOL/L (24-32); eCRCL 126 ML/MIN; eGFR > 90 ML/MIN
[2024-12-22 06:47] VITALS: BP 114/72; PULSE 89; RESP 17; TEMP 99.5; O2SAT 97
[2024-12-22 10:00] VITALS: BP 123/67; PULSE 114; RESP 17; TEMP 97.1; O2SAT 100
[2024-12-22] MEDS: normal saline 500ml IV soln 500 ML IV ONE (16:53)
[2024-12-22 18:00] VITALS: BP 106/63; PULSE 107; RESP 16; TEMP 98.6; O2SAT 97
--- NOTE | 2024-12-22 20:16 | PROGRESS NOTE ---
Daily Progress Note Providers to CC Feels fine today pain well controlled tolerating medication okay ~ Central Line/PICC still needed: No Ruiz-Non Protocol Ruiz Indications Met/Not Met: F/C Indications Not Met Antibiotic Timeout Antibiotic Ordered?: Yes MRSA Education MRSA Education Provided to pt: Yes Subjective As above Objective Vital Signs Date Time Temp Pulse Resp B/P (MAP) Pulse Ox O2 Delivery O2 Flow Rate FiO2 12/22/24 16:52 16 12/22/24 10:44 114 12/22/24 10:00 97.1 123/67 (85) 100 12/22/24 08:00 Room Air 0.0 12/21/24 03:27 96 Vital signs, stable ,afebrile. Pulse Oximetry reflects adequate oxygenation. General: well developed, well nourished. Awake , alert, and oriented x4, resting comfortably in the bed, in no acute distress . Skin: Warm, dry, no pallor, no rash or petechiae. HEENT: Atraumatic, normocephalic, EOMI, anicteric sclera B; pink conjunctiva; PERRLA, normal oropharynx, moist oral and nasal mucosa. Tympanic membrane , nose , throat clear. Neck: Trachea midline. Supple, full range of motion, no JVD, bruit , hepatojugular reflex , lymphadenopathy or masses, or other lesions Cardiac: Regular rhythm, regular rate no murmurs, rubs, or gallops. Normal S1 and S2, no S3 noticed. PMI is normal. Respiratory: Equal breath sounds bilaterally, no tachypnea; lungs clear to auscultation bilaterally, no wheezing ,rub or rales, or crackles. Chest wall is symmetric and without deformity. No signs of trauma. Chest wall is nontender. No signs of respiratory distress. Resonance is normal upon percussion bilaterally. Gastrointestinal: Abdomen symmetric, non-distended, soft, non-tender, normal bowel sounds x4 quadrant, normoactive, no hepatosplenomegaly , no masses , no bruit, no flank pain bilaterally. No voluntary guarding, rebound, or rigidity. No tenderness to percussion. No pulsatile masses. Equal femoral pulses. No Khan's sign or McBurney point tenderness. Back; no CVA tenderness bilaterally, no deformities. Neck and back are without deformity as well. No tenderness noted on palpation of the spinous processes. Spinous processes are midline. Cervical, thoracic, and lumbar paraspinal muscles are not tender and are without spasm. : normal external genitalia, without lesions, swelling, masses or tenderness. Musculoskeletal: Extremities, normal range of motion, non-tender, muscle strength 5/5 x 4. Negative Homans signs bilaterally on lower extremity. Distal pulses full symmetrical, no clubbing, cyanosis , edema. Dressing clean dry intact on bilateral lower legs Neurological: Speech is clear, alert, and oriented x 4. No motor or sensory deficit, deep tendon reflexes normal, cerebellar intact. Cranial nerves II-XII intact. Psych: Alert and or appropriate, normal affect. Vascular: Good distal pulses, which are equal x4; capillary refill less than 2 seconds. Lymphatic, no lymphadenopathy. Result Diagram: 12/22/2441912/22/24419 Problem\Assessment\Plan 24-year-old male with no significant past medical history presented to the ED with chief complaints of bilateral lower extremity cramps since earlier today. Assessment & Plan Nontraumatic Compartment syndrome of b/l LE, awaiting to go to OR today Rhabdomyolysis- POA Intrarenal BOUBACAR 2/2 ATN 2/2 myoglobinemia 2/2 rhabdomyolysis- POA -12/14: OR today for anterior and lateral compartment fasciotomy bilateral lower extremities -uptrending CK, elevated myoglobin, elevated LDH, continued on fluid resuscitation, Cr downtrending on IVF -12/16-12/19: bedrest for now per surgeon recommendation, continue wound care, on prophylactic cefazolin Status post fasciotomy incision closure, postoperative day 1., good recovery HTN -amlodipine, prn hydralazine Code Status: Full code DVT/VTE Prophylaxis: heparin Sepsis Screening Reassessment Date: Dec 22, 2024 Date of Service: Dec 22, 2024 Billing Provider: KAIT MURRAY MD Common Visit Codes: [id number] INP/OBS CARE(HIGH) KAIT MURRAY MD Dec 22, 2024 20:16
[2024-12-22 22:00] VITALS: BP 106/64; PULSE 83; RESP 12; TEMP 96.8; O2SAT 95
[2024-12-23] VITALS (7 sets, daily range): BP systolic 102–123; BP diastolic 55–75; PULSE 88–92; RESP 14–16; TEMP 98–98.6; O2SAT 96–98
[2024-12-23 05:03] LABS: MEAN PLATELET VOLUME 8.9 FL (7.4-10.4); RED CELL DISTRIBUTION WIDTH 12.7 % (11.5-14.5)
[2024-12-23 05:17] LABS: CREATININE 0.87 MG/DL (0.60-1.10); TOTAL CARBON DIOXIDE 28.1 MMOL/L (24-32); eCRCL 116 ML/MIN; eGFR > 90 ML/MIN
--- NOTE | 2024-12-23 17:02 | PROGRESS NOTE ---
Daily Progress Note Providers to CC ~ doing well today, pain well controlled, able to ambulate around the room Central Line/PICC still needed: No Ruiz-Non Protocol Ruiz Indications Met/Not Met: F/C Indications Not Met Antibiotic Timeout Antibiotic Ordered?: Yes MRSA Education MRSA Education Provided to pt: Yes Subjective As above Objective Vital Signs Date Time Temp Pulse Resp B/P (MAP) Pulse Ox O2 Delivery O2 Flow Rate FiO2 12/23/24 14:56 16 12/23/24 10:49 98 Room Air 12/23/24 10:00 98.0 91 102/55 (71) 12/22/24 20:00 0.0 12/21/24 03:27 96 Vital signs, stable ,afebrile. Pulse Oximetry reflects adequate oxygenation. General: well developed, well nourished. Awake , alert, and oriented x4, resting comfortably in the bed, in no acute distress . Skin: Warm, dry, no pallor, no rash or petechiae. HEENT: Atraumatic, normocephalic, EOMI, anicteric sclera B; pink conjunctiva; PERRLA, normal oropharynx, moist oral and nasal mucosa. Tympanic membrane , nose , throat clear. Neck: Trachea midline. Supple, full range of motion, no JVD, bruit , hepatojugular reflex , lymphadenopathy or masses, or other lesions Cardiac: Regular rhythm, regular rate no murmurs, rubs, or gallops. Normal S1 and S2, no S3 noticed. PMI is normal. Respiratory: Equal breath sounds bilaterally, no tachypnea; lungs clear to auscultation bilaterally, no wheezing ,rub or rales, or crackles. Chest wall is symmetric and without deformity. No signs of trauma. Chest wall is nontender. No signs of respiratory distress. Resonance is normal upon percussion bilaterally. Gastrointestinal: Abdomen symmetric, non-distended, soft, non-tender, normal bowel sounds x4 quadrant, normoactive, no hepatosplenomegaly , no masses , no bruit, no flank pain bilaterally. No voluntary guarding, rebound, or rigidity. No tenderness to percussion. No pulsatile masses. Equal femoral pulses. No Khan's sign or McBurney point tenderness. Back; no CVA tenderness bilaterally, no deformities. Neck and back are without deformity as well. No tenderness noted on palpation of the spinous processes. Spinous processes are midline. Cervical, thoracic, and lumbar paraspinal muscles are not tender and are without spasm. : normal external genitalia, without lesions, swelling, masses or tenderness. Musculoskeletal: Extremities, normal range of motion, non-tender, muscle strength 5/5 x 4. Negative Homans signs bilaterally on lower extremity. Distal pulses full symmetrical, no clubbing, cyanosis , edema. Dressing on bilateral lower legs clean dry intact neurovascular grossly intact Neurological: Speech is clear, alert, and oriented x 4. No motor or sensory deficit, deep tendon reflexes normal, cerebellar intact. Cranial nerves II-XII intact. Psych: Alert and or appropriate, normal affect. Vascular: Good distal pulses, which are equal x4; capillary refill less than 2 seconds. Lymphatic, no lymphadenopathy. Result Diagram: 12/23/2443712/23/24437 Problem\Assessment\Plan 24-year-old male with no significant past medical history presented to the ED with chief complaints of bilateral lower extremity cramps since earlier today. Assessment & Plan Nontraumatic Compartment syndrome of b/l LE, , status post closure facility tummy incision Rhabdomyolysis- POA Intrarenal BOUBACAR 2/2 ATN 2/2 myoglobinemia 2/2 rhabdomyolysis- POA -12/14: OR today for anterior and lateral compartment fasciotomy bilateral lower extremities -uptrending CK, elevated myoglobin, elevated LDH, continued on fluid resuscitation, Cr downtrending on IVF -12/16-12/19: bedrest for now per surgeon recommendation, continue wound care, on prophylactic cefazolin Status post fasciotomy incision closure, postoperative day 1., good recovery HTN -amlodipine, prn hydralazine Code Status: Full code DVT/VTE Prophylaxis: heparin Disposition, anticipate to discharge in the morning if okay with Dr. Casiano Sepsis Screening Reassessment Date: Dec 23, 2024 Date of Service: Dec 23, 2024 Billing Provider: KAIT MURRAY MD Common Visit Codes: [id number] INP/OBS CARE(HIGH) KIAT MURRAY MD Dec 23, 2024 17:02
[2024-12-23] MEDS: ringers solution, lacted 1,000 ML IV ONE (17:21)
[2024-12-24 05:00] LABS: MEAN PLATELET VOLUME 8.8 FL (7.4-10.4); RED CELL DISTRIBUTION WIDTH 12.4 % (11.5-14.5)
[2024-12-24 05:22] LABS: CREATININE 0.93 MG/DL (0.60-1.10); TOTAL CARBON DIOXIDE 29.9 MMOL/L (24-32); eCRCL 109 ML/MIN; eGFR > 90 ML/MIN
[2024-12-24 06:00] VITALS: BP 125/72; PULSE 90; RESP 14; TEMP 98.2; O2SAT 98
[2024-12-24 08:20] VITALS: RESP 16; O2SAT 98
[2024-12-24 10:00] VITALS: BP 115/69; PULSE 99; RESP 16; TEMP 97.8; O2SAT 98
--- NOTE | 2024-12-24 16:47 | PROGRESS NOTE ---
Daily Progress Note Providers to CC ~ feels better today, less pain, tolerating medication okay, ambulate around the bed Central Line/PICC still needed: No Ruiz-Non Protocol Ruiz Indications Met/Not Met: F/C Indications Not Met Antibiotic Timeout Antibiotic Ordered?: Yes MRSA Education MRSA Education Provided to pt: Yes Subjective As above Objective Vital Signs Date Time Temp Pulse Resp B/P (MAP) Pulse Ox O2 Delivery O2 Flow Rate FiO2 12/24/24 16:38 18 12/24/24 10:00 97.8 99 115/69 (84) 98 Room Air 12/24/24 08:20 0.0 12/21/24 03:27 96 Vital signs, stable ,afebrile. Pulse Oximetry reflects adequate oxygenation. General: well developed, well nourished. Awake , alert, and oriented x4, resting comfortably in the bed, in no acute distress . Skin: Warm, dry, no pallor, no rash or petechiae. HEENT: Atraumatic, normocephalic, EOMI, anicteric sclera B; pink conjunctiva; PERRLA, normal oropharynx, moist oral and nasal mucosa. Tympanic membrane , nose , throat clear. Neck: Trachea midline. Supple, full range of motion, no JVD, bruit , hepatojugular reflex , lymphadenopathy or masses, or other lesions Cardiac: Regular rhythm, regular rate no murmurs, rubs, or gallops. Normal S1 and S2, no S3 noticed. PMI is normal. Respiratory: Equal breath sounds bilaterally, no tachypnea; lungs clear to auscultation bilaterally, no wheezing ,rub or rales, or crackles. Chest wall is symmetric and without deformity. No signs of trauma. Chest wall is nontender. No signs of respiratory distress. Resonance is normal upon percussion bilaterally. Gastrointestinal: Abdomen symmetric, non-distended, soft, non-tender, normal bowel sounds x4 quadrant, normoactive, no hepatosplenomegaly , no masses , no bruit, no flank pain bilaterally. No voluntary guarding, rebound, or rigidity. No tenderness to percussion. No pulsatile masses. Equal femoral pulses. No Khan's sign or McBurney point tenderness. Back; no CVA tenderness bilaterally, no deformities. Neck and back are without deformity as well. No tenderness noted on palpation of the spinous processes. Spinous processes are midline. Cervical, thoracic, and lumbar paraspinal muscles are not tender and are without spasm. : normal external genitalia, without lesions, swelling, masses or tenderness. Musculoskeletal: Extremities, normal range of motion, non-tender, muscle strength 5/5 x 4. Negative Homans signs bilaterally on lower extremity. Distal pulses full symmetrical, no clubbing, cyanosis ,; dressings on bilateral lower extremity clean dry intact Neurological: Speech is clear, alert, and oriented x 4. No motor or sensory deficit, deep tendon reflexes normal, cerebellar intact. Cranial nerves II-XII intact. Psych: Alert and or appropriate, normal affect. Vascular: Good distal pulses, which are equal x4; capillary refill less than 2 seconds. Lymphatic, no lymphadenopathy. Result Diagram: 12/24/2443712/24/24437 Problem\Assessment\Plan 24-year-old male with no significant past medical history presented to the ED with chief complaints of bilateral lower extremity cramps since earlier today. Assessment & Plan Nontraumatic Compartment syndrome of b/l LE, , status post closure facility tummy incision Rhabdomyolysis- POA Intrarenal BOUBACAR 2/2 ATN 2/2 myoglobinemia 2/2 rhabdomyolysis- POA -12/14: OR today for anterior and lateral compartment fasciotomy bilateral lower extremities -uptrending CK, elevated myoglobin, elevated LDH, continued on fluid resuscitation, Cr downtrending on IVF -12/16-12/19: bedrest for now per surgeon recommendation, continue wound care, on prophylactic cefazolin Status post fasciotomy incision closure, postoperative day 1., good recovery HTN -amlodipine, prn hydralazine Code Status: Full code DVT/VTE Prophylaxis: heparin Disposition, anticipate to discharge in one day Sepsis Screening Reassessment Date: Dec 24, 2024 Date of Service: Dec 24, 2024 Billing Provider: KAIT MURARY MD Common Visit Codes: 67628-[id number] INP/OBS CARE(HIGH) KAIT MURRAY MD Dec 24, 2024 16:47
[2024-12-24 18:00] VITALS: BP 114/64; PULSE 95; RESP 16; TEMP 97.9; O2SAT 98
[2024-12-24 20:00] VITALS: RESP 16; O2SAT 98
[2024-12-24 22:00] VITALS: BP 131/74; PULSE 85; RESP 14; TEMP 98.9; O2SAT 97
[2024-12-25 06:00] VITALS: BP 103/58; PULSE 70; RESP 14; TEMP 97.9; O2SAT 97
[2024-12-25 06:20] LABS: MEAN PLATELET VOLUME 9.0 FL (7.4-10.4); RED CELL DISTRIBUTION WIDTH 12.3 % (11.5-14.5)
[2024-12-25 06:27] LABS: CREATININE 0.95 MG/DL (0.60-1.10); TOTAL CARBON DIOXIDE 29.5 MMOL/L (24-32); eCRCL 106 ML/MIN; eGFR > 90 ML/MIN
[2024-12-25 09:49] VITALS: RESP 16; O2SAT 97
[2024-12-25 10:00] VITALS: BP 110/62; PULSE 93; RESP 15; TEMP 97.7; O2SAT 97
--- NOTE | 2024-12-25 15:48 | PROGRESS NOTE ---
Daily Progress Note Providers to CC Feels better today, pain well controlled ~ Central Line/PICC still needed: No Ruiz-Non Protocol Ruiz Indications Met/Not Met: F/C Indications Not Met Antibiotic Timeout Antibiotic Ordered?: Yes MRSA Education MRSA Education Provided to pt: Yes Subjective As above Objective Vital Signs Date Time Temp Pulse Resp B/P (MAP) Pulse Ox O2 Delivery O2 Flow Rate FiO2 12/25/24 15:21 18 12/25/24 10:00 97.7 93 110/62 (78) 97 Room Air 12/25/24 09:49 0.0 Vital signs, stable ,afebrile. Pulse Oximetry reflects adequate oxygenation. General: well developed, well nourished. Awake , alert, and oriented x4, resting comfortably in the bed, in no acute distress . Skin: Warm, dry, no pallor, no rash or petechiae. HEENT: Atraumatic, normocephalic, EOMI, anicteric sclera B; pink conjunctiva; PERRLA, normal oropharynx, moist oral and nasal mucosa. Tympanic membrane , nose , throat clear. Neck: Trachea midline. Supple, full range of motion, no JVD, bruit , hepatojugular reflex , lymphadenopathy or masses, or other lesions Cardiac: Regular rhythm, regular rate no murmurs, rubs, or gallops. Normal S1 and S2, no S3 noticed. PMI is normal. Respiratory: Equal breath sounds bilaterally, no tachypnea; lungs clear to auscultation bilaterally, no wheezing ,rub or rales, or crackles. Chest wall is symmetric and without deformity. No signs of trauma. Chest wall is nontender. No signs of respiratory distress. Resonance is normal upon percussion bilaterally. Gastrointestinal: Abdomen symmetric, non-distended, soft, non-tender, normal bowel sounds x4 quadrant, normoactive, no hepatosplenomegaly , no masses , no bruit, no flank pain bilaterally. No voluntary guarding, rebound, or rigidity. No tenderness to percussion. No pulsatile masses. Equal femoral pulses. No Khan's sign or McBurney point tenderness. Back; no CVA tenderness bilaterally, no deformities. Neck and back are without deformity as well. No tenderness noted on palpation of the spinous processes. Spinous processes are midline. Cervical, thoracic, and lumbar paraspinal muscles are not tender and are without spasm. : normal external genitalia, without lesions, swelling, masses or tenderness. Musculoskeletal: Extremities, normal range of motion, non-tender, muscle strength 5/5 x 4. Negative Homans signs bilaterally on lower extremity. Distal pulses full symmetrical, no clubbing, cyanosis , edema. Dressing clean dry intact Neurological: Speech is clear, alert, and oriented x 4. No motor or sensory deficit, deep tendon reflexes normal, cerebellar intact. Cranial nerves II-XII intact. Psych: Alert and or appropriate, normal affect. Vascular: Good distal pulses, which are equal x4; capillary refill less than 2 seconds. Lymphatic, no lymphadenopathy. Result Diagram: 12/25/2451712/25/24517 Problem\Assessment\Plan 24-year-old male with no significant past medical history presented to the ED with chief complaints of bilateral lower extremity cramps since earlier today. Assessment & Plan Nontraumatic Compartment syndrome of b/l LE, , status post closure facility tummy incision Rhabdomyolysis- POA Intrarenal BOUBACAR 2/2 ATN 2/2 myoglobinemia 2/2 rhabdomyolysis- POA -12/14: OR today for anterior and lateral compartment fasciotomy bilateral lower extremities -uptrending CK, elevated myoglobin, elevated LDH, continued on fluid resuscitation, Cr downtrending on IVF -12/16-12/19: bedrest for now per surgeon recommendation, continue wound care, on prophylactic cefazolin Status post fasciotomy incision closure, postoperative day 1., good recovery HTN -amlodipine, prn hydralazine Code Status: Full code DVT/VTE Prophylaxis: heparin Disposition, anticipate to discharge in one day Date of Service: Dec 25, 2024 Billing Provider: KAIT MURRAY MD Common Visit Codes: [id number] INP/OBS CARE(MOD) KAIT MURRAY MD Dec 25, 2024 15:48
[2024-12-25 18:00] VITALS: BP 120/72; PULSE 84; RESP 15; TEMP 97.7; O2SAT 97
[2024-12-25 20:00] VITALS: RESP 15; O2SAT 97
[2024-12-25 22:00] VITALS: BP 100/61; PULSE 66; RESP 16; TEMP 98.2; O2SAT 99
[2024-12-26 05:55] LABS: MEAN PLATELET VOLUME 8.7 FL (7.4-10.4); RED CELL DISTRIBUTION WIDTH 12.6 % (11.5-14.5)
[2024-12-26 06:00] VITALS: BP 100/64; PULSE 88; RESP 16; TEMP 98; O2SAT 98
[2024-12-26 06:22] LABS: CREATININE 1.12 MG/DL (0.60-1.10); TOTAL CARBON DIOXIDE 30.5 MMOL/L (24-32); eCRCL 90 ML/MIN; eGFR 79 ML/MIN
--- NOTE | 2024-12-26 09:39 | VASCULAR REPORT ---
LEFT Upper Extremity Venous Duplex Clinical History: Pain Comparison: None Technique: Duplex Doppler evaluation of the venous system of the LEFT lower neck and upper extremity including color Doppler and spectral/pulsed waveform analysis was performed. Findings: The internal jugular vein demonstrates appropriate compressibility and waveform variability. The subclavian vein is patent on color Doppler evaluation without intraluminal thrombus and demonstra jacklyn waveform variability. The visualized portion of the brachiocephalic vein is patent on color Doppler evaluation without intr aluminal thrombus and demonstrates waveform variability. The axillary vein demonstrates appropriate compressibility and waveform variability. The brachial veins demonstrate appropriate compressibility and patency on Doppler evaluation. The basilic vein demonstrates intraluminal thrombus. The cephalic vein demonstrates appropriate compressibility and patency on Doppler evaluation. Impression: Thrombus is present in the left basilic vein at the bicep. Contralateral subclavian vein is patent.
[2024-12-26] MEDS: ibuprofen tablet 400 MG TABLET PO SCH (10:45)
[2024-12-26 11:00] VITALS: BP 113/65; PULSE 59; RESP 18; TEMP 97.4; O2SAT 98
[2024-12-26 11:56] LABS: APTT 25 SECONDS (22-32); INR 1.0 INR
[2024-12-26] MEDS ORDERED: CEPH500C3 PO (13:35)
[2024-12-26] MEDS ORDERED: HYDR-3965 PO (13:35)
[2024-12-26] MEDS ORDERED: APIX5TAB3 PO (13:35)
--- NOTE | 2024-12-26 16:57 | DISCHARGE SUMMARY ---
Discharge Summary Providers to CC Feel better today, cleared for discharge by surgeon ~ Discharge Summary Assessment Rhabdomyolysis Compartment syndrome nontraumatic bilateral lower legs Acute kidney disease secondary to vasomotor nephropathy Status post bilateral lower leg fasciotomy Status post bilateral lower leg fasciotomy closure Gait disorder, ambulate with crutches Left arm superficial thrombophlebitis Admission Diagnosis: COMPARTMENT SYNDROME Admission Diagnosis Comment: Rhabdomyolysis Compartment syndrome nontraumatic bilateral lower legs Acute kidney disease secondary to vasomotor nephropathy Status post bilateral lower leg fasciotomy Status post bilateral lower leg fasciotomy closure Gait disorder, ambulate with crutches Left arm superficial thrombophlebitis Hospital Course DATE OF ADMISSION: December 13, 2024 DATE OF DISCHARGE: December 26, 2024 Discharge Diagnosis\Comment: Rhabdomyolysis Compartment syndrome nontraumatic bilateral lower legs Acute kidney disease secondary to vasomotor nephropathy Status post bilateral lower leg fasciotomy Status post bilateral lower leg fasciotomy closure Gait disorder, ambulate with crutches Left arm superficial thrombophlebitis Operations\Procedures: Bilateral lower legs fasciotomy Bilateral lower leg fasciotomy closure Consultants: Orthopedic surgeon Complications: Non Condition on DC: Stable Discharge Summary: This is a 71 years old white gentleman with history of multiple medical problems including COPD, anemia hemoglobin 13, CHF ejection fraction preserved 65% August 2024, hypertension, history of deconditioning secondary to Parkinson disease, chronic pain syndrome secondary to lumbar degenerative disc disease, recently treated for carpal tunnel syndrome with surgery, tachyarrhythmia, osteoarthritis, presented today to emergency department chief complaint generalized weakness associated with altered level of consciousness; in addition pt biba from home for confusion since 0700 with blurred vision and while having these episodes of confusion pt experienced CP (pressure) and numbness to tongue; in route to ER pt HR 150-200's gcs 15. a&ox4. HX OF PARKINSONS AND HTN. Emergency department he was evaluated by physician was diagnosed with left-sided pneumonia, COPD exacerbation, hyponatremia, altered level of consciousness, and decision was made to admit patient for further evaluation and treatment, started on IV antibiotics, no additional complaint or concern. After admission patient was extensively evaluated treated including to procedure, today he is feeling better was cleared for discharge by surgeon, he will be discharged in stable condition medication reconciled follow-up PCP in the morning and wound care in the afternoon, today on physical exam Vital signs, stable ,afebrile. Pulse Oximetry reflects adequate oxygenation. BM General: well developed, well nourished. Awake , alert, and oriented x4, resting comfortably in the bed, in no acute distress . Skin: Warm, dry, no pallor, no rash or petechiae. HEENT: Atraumatic, normocephalic, EOMI, anicteric sclera B; pink conjunctiva; PERRLA, normal oropharynx, moist oral and nasal mucosa. Tympanic membrane , nose , throat clear. Neck: Trachea midline. Supple, full range of motion, no JVD, bruit , hepatojugular reflex , lymphadenopathy or masses, or other lesions Cardiac: Regular rhythm, regular rate no murmurs, rubs, or gallops. Normal S1 and S2, no S3 noticed. PMI is normal. Respiratory: Equal breath sounds bilaterally, no tachypnea; lungs clear to auscultation bilaterally, no wheezing ,rub or rales, or crackles. Chest wall is symmetric and without deformity. No signs of trauma. Chest wall is nontender. No signs of respiratory distress. Resonance is normal upon percussion bilaterally. Gastrointestinal: Abdomen symmetric, non-distended, soft, non-tender, normal bowel sounds x4 quadrant, normoactive, no hepatosplenomegaly , no masses , no bruit, no flank pain bilaterally. No voluntary guarding, rebound, or rigidity. No tenderness to percussion. No pulsatile masses. Equal femoral pulses. No Khan's sign or McBurney point tenderness. Back; no CVA tenderness bilaterally, no deformities. Neck and back are without deformity as well. No tenderness noted on palpation of the spinous processes. Spinous processes are midline. Cervical, thoracic, and lumbar paraspinal muscles are not tender and are without spasm. : normal external genitalia, without lesions, swelling, masses or tenderness. Musculoskeletal: Extremities, normal range of motion, non-tender, muscle strength 5/5 x 4. Negative Homans signs bilaterally on lower extremity. Distal pulses full symmetrical, no clubbing, cyanosis , edema. Ambulates with crutches, dressing clean dry intact Neurological: Speech is clear, alert, and oriented x 4. No motor or sensory deficit, deep tendon reflexes normal, cerebellar intact. Cranial nerves II-XII intact. Psych: Alert and or appropriate, normal affect. Vascular: Good distal pulses, which are equal x4; capillary refill less than 2 seconds. Lymphatic, no lymphadenopathy. *Problems/Diagnosis: (1) Compartment syndrome Status: Acute Total Time Spent on D/C: > 30 Minutes Date of Service: Dec 26, 2024 Billing Provider: KAIT MURRAY MD Common Visit Codes: 31093-RLZ/OBS DISCH DAY >30min Problem Qualifiers (1) Compartment syndrome: Qualified Codes: M79.A22 - Nontraumatic compartment syndrome of left lower extremity KAIT MURRAY MD Dec 26, 2024 16:57
== END 2024-12-26 14:55 | disposition home or self-care (01) | DRG 500 ==
LOC: ER 09:51 → ED HOLD 19:59 → SUR 3N 12-14 01:10
PROVIDERS: ADMIT Internal Medicine Critical Care Medicine; ATTEND Nurse Practitioner Family
PROC: 0KNT0ZZ Release Left Lower Leg Muscle, Open Approach (ICD-10-PCS; 2024-12-14)
PROC: 0KNT0ZZ Release Left Lower Leg Muscle, Open Approach (ICD-10-PCS; 2024-12-14)
PROC: 0KNS0ZZ Release Right Lower Leg Muscle, Open Approach (ICD-10-PCS; principal; 2024-12-14 07:56)
PROC: 3E10X8Z Irrigation of Skin and Mucous Membranes using Irrigating Substance (ICD-10-PCS; 2024-12-21)
DX: M79.A22 Nontraumatic compartment syndrome of left lower extremity (principal); J18.9 Pneumonia, unspecified organism; N17.0 Acute kidney failure with tubular necrosis; E87.1 Hypo-osmolality and hyponatremia; J44.0 Chronic obstructive pulmonary disease with (acute) lower respiratory infection; J44.1 Chronic obstructive pulmonary disease with (acute) exacerbation; M62.82 Rhabdomyolysis; M79.A11 Nontraumatic compartment syndrome of right upper extremity; M79.A21 Nontraumatic compartment syndrome of right lower extremity; G20.A1 Parkinson's disease without dyskinesia, without mention of fluctuations; G89.4 Chronic pain syndrome; I11.0 Hypertensive heart disease with heart failure; I50.9 Heart failure, unspecified; I80.8 Phlebitis and thrombophlebitis of other sites; R74.02 Elevation of levels of lactic acid dehydrogenase [LDH]; Z79.899 Other long term (current) drug therapy
CPT/HCPCS: 96361; 96374; 96375; 99285; Z7506; Z7508; 36415; 73590; 80048; 80053; 80305; 81003; 82550; 82693; 82948; 83605; 83615; 83735; 83874; 84100; 84132; 84550; 85008; 85025; 85610; 85730; 87081; 93971; 97110; 97116; 97161; 97530; A4618; A6154; A6209; A6222; A6223; A6243; A6253; A6258; A6446; A6449; A7000; G0378; J0131; J0690; J1100; J1171; J1644; J1885; J2003; J2060; J2250; J2270; J2405; J2704; J3010; J3490; J7030; J7040; J7120